=== PATIENT | female | born 1970 | race Caucasian/White ===

== ENCOUNTER 2016-09-23 11:24 | Inpatient (IN) | payer BC, MEDICARE ==
[2016-09-23] MEDS ORDERED: Sodium Chloride 0.9% 1000 ML 1,000 ML IV STA (11:48)
[2016-09-23] MEDS ORDERED: Sodium Chloride 0.9% 1000 ML 1,000 ML ONE (11:58)
[2016-09-23 12:13] LABS: Mean Cell Volume 87.4 fl (78-100); Mean Corpuscular Hemoglobin 29.3 pg (26-32); Mean Platelet Volume 10.3 fl (6-9.5); Platelet Count 390 K/mm3 (150-450); Red Blood Count 5.01 M/mm3 (4.1-5.4); Red Cell Distribution Width 13.6 % (11.5-14.0); White Blood Count 21.1 K/mm3 (4.0-10.5)
[2016-09-23 12:49] LABS: ALBUMIN 3.3 g/dL (3.4-5.0); ALKALINE PHOSPHATASE 85 U/L (46-116); ANION GAP 17.5 MEQ/L (5-15); BILIRUBIN,TOTAL 0.8 mg/dL (0.2-1.0); BLOOD UREA NITROGEN 11 mg/dL (9-20); CHLORIDE 99 mEq/L (98-107); Carbon Dioxide 22.2 mEq/L (21-32); Glucose 128 MG/DL (70-110); Potassium 3.9 mEq/L (3.5-5.1); SGOT/AST 23 U/L (15-37); SGPT/ALT 35 U/L (12-78); SODIUM 135 mEq/L (136-145); Total Protein 7.2 gm/dL (6.4-8.2)
[2016-09-23 12:55] LABS: Platelet Estimate NORMAL (NORMAL); Total Cells Counted 100
[2016-09-23 13:13] LABS: INR 1.16 (0.8-3.0); PROTIME 12.9 SECONDS (9.95-12.35)
--- NOTE | 2016-09-23 13:38 | XRAY ---
Indication: Abdominal/pelvic pain for 2 weeks. Diarrhea. Dehydration. Multiple contiguous axial images obtained through the abdomen and pelvis using 80 cc Isovue 370 contrast only. Comparison: None Lung bases demonstrates minimal inferior lingular fibrosis/scarring. No infiltrate, consolidation, or effusion. Heart is not enlarged and demonstrates tiny pericardial effusion/thickening anteriorly. Noncontrasted stomach and bowel loops appear nonobstructed. There is mild/moderate circumferential wall thickening of the entire colon with pericolonic stranding favoring colitis. Greatest extent involves the ascending and transverse colon. Normal terminal ileum. Tiny right colic free fluid. No walled off fluid or free air. Spleen is enlarged measuring 14.4 cm in greatest axial dimension. Gallbladder is moderately distended with borderline wall thickening and a few tiny gallstones. No pericholecystic fluid or abnormal biliary distention. Remaining liver, pancreas, adrenal glands, kidneys, ureters, bladder, and uterus appear unremarkable. Minimal aortoiliac calcifications. No AAA or pathologic retroperitoneal lymphadenopathy. Osseous structures intact with mild/moderate degenerative changes throughout the spine greatest in the lumbar. Mild degenerative changes of both hips. Impression: 1. CT findings as detailed favoring diffuse colitis. Normal terminal ileum. No perforation or complications. 2. Distended gallbladder with borderline wall thickening and a few tiny gallstones. Rule out chronic cholecystitis. 3. Incidental splenomegaly. CT DI 35.17
[2016-09-23 13:45] LABS: Collection Type VOID; Ph 7.5 (5-6)
[2016-09-23 13:47] LABS: COMPLETE URINE MICROSCOPIC? YES; Epithelial Cells FEW /HPF (FEW); Mucus SLIGHT /HPF (NEGATIVE)
[2016-09-23 13:48] LABS: ADD URINE CULTURE? NO (NO)
--- NOTE | 2016-09-23 13:57 | ERPHSYRPT ---
- History of Present Illness Time Seen by Provider: 09/23/16 11:35 Historian: patient, family Exam Limitations: no limitations Patient Subjective Stated Complaint: PT STATES THAT SHE HAS HAD DIARRHEA X 2 WEEKS STATES HER FAMILY MD HAS SEEN HER AND DRAWN BLOOD AND GIVEN HER BACTRIM BUT STATES THAT SHE IS STILL HAVING THE DIARRHEA STATES THAT SHE WAS TOLD TO COME HERE BECAUSE FAMILY MD THOUGHT SHE WAS GETTING DEHYDRATED. PT STATES THEY HAVE ALSO ALREADY TESTED HER STOOL Triage Nursing Assessment: PT ALERT WARM AND DRY RESP EASY NON LABOERD PT AMBULATED TO ROOM WITHOUT DIFFIUCLTY ABDOMEN SOFT BOWEL SOUNDS NOTED X 4 QUADS. Physician History: Records from Dr. Henderson's office note elevated WBC at greater than 20K. Stool negative for salmonella and shigella. Pt. no better for 2 weeks now. Timing/Duration: week(s) (2) Activities at Onset: none Quality: cramping Abdominal Pain Onset Location: RUQ, periumbilical Severity of Pain-Max: moderate Severity of Pain-Current: moderate Modifying Factors: Improves With: movement Associated Symptoms: denies symptoms Previous symptoms: no prior history Allergies/Adverse Reactions: Penicillins Allergy (Verified 09/23/16 11:30) Home Medications: Diltiazem HCl 120 mg PO 09/23/16 [History] Fluoxetine HCl 40 mg PO DAILY 09/23/16 [History] Lisinopril/Hydrochlorothiazide [Lisinopril-Hctz 20-12.5 mg Tab] 09/23/16 [ History] Naproxen 500 mg PO 09/23/16 [History] Hx Tetanus, Diphtheria Vaccination/Date Given: Yes Hx Influenza Vaccination/Date Given: Yes Hx Pneumococcal Vaccination/Date Given: No Immunizations Up to Date: Yes - Review of Systems Constitutional: No Symptoms Eyes: No Symptoms Ears, Nose, & Throat: No Symptoms Respiratory: No Symptoms Cardiac: No Symptoms Abdominal/Gastrointestinal: Abdominal Pain, Diarrhea Genitourinary Symptoms: No Symptoms Musculoskeletal: No Symptoms Skin: No Symptoms Neurological: No Symptoms Psychological: No Symptoms Endocrine: No Symptoms Hematologic/Lymphatic: No Symptoms - Past Medical History Pertinent Past Medical History: Yes Other Medical History: DEPRESSION,HTN,ARTHRITIS. - Past Surgical History Past Surgical History: Yes Other Surgical History: TUBAL,DOUBLE KNEE REPLACEDMENT,BACK SUGERY - Social History Smoking Status: Never smoker Exposure to second hand smoke: No Drug Use: none Patient Lives Alone: No - Female History Hx Last Menstrual Period: ABLASION - Nursing Vital Signs Nursing Vital Signs: Initial Vital Signs Temperature 97.9 F Temperature Source Oral Pulse Rate 105 Respiratory Rate 18 Blood Pressure [] 141/76 Pain Intensity 6 - Physical Exam General Appearance: moderate distress Eye Exam: eyes nml inspection Ears, Nose, Throat Exam: normal ENT inspection, pharynx normal Neck Exam: normal inspection, non-tender, supple, full range of motion Respiratory Exam: normal breath sounds, lungs clear Cardiovascular Exam: regular rate/rhythm, normal heart sounds, normal peripheral pulses Gastrointestinal/Abdomen Exam: soft, normal bowel sounds, tenderness ( periumbilical and RUQ) Extremity Exam: normal inspection, normal range of motion, pelvis stable Neurologic Exam: alert, oriented x 3, cooperative Skin Exam: normal color, warm, dry SpO2 Interpretation: normal SpO2: 96 Oxygen Delivery: Room Air - Course Nursing assessment & vital signs reviewed: Yes - CT Exams Abdomen/Pelvis CT Interpretation: Tele-radiologist Report (Mild/moderate circumferential wall thickening of entire colon with percolonic stranding favoring colitis. Distended gallbladder with borderline wall thickening and a few tiny gallstones. Chronic cholecystitis. Incidental splenomagly.) Ordered Tests: Active Orders 24 hr Category Date Time Status IV Insertion STAT Care 09/23/16 12:33 Active Orthostatic Vital Signs STAT Care 09/23/16 11:48 Active ABDOMEN AND PELVIS W CONTRAST [CT] Stat Exams 09/23/16 11:53 Completed BLOOD CULTURE Stat Lab 09/23/16 14:20 Received CBC W DIFF Stat Lab 09/23/16 12:00 Completed CMP Stat Lab 09/23/16 12:00 Completed LIPASE Stat Lab 09/23/16 12:00 Completed Lactic Acid Stat Lab 09/23/16 14:25 Completed Manual Differential NC Stat Lab 09/23/16 12:00 Completed PROTIME WITH INR Stat Lab 09/23/16 12:00 Completed UA W/ MICROSCOPIC Stat Lab 09/23/16 13:30 Completed UA W/RFX UR CULTURE Stat Lab 09/23/16 13:30 Completed Medication Summary Generic Name Dose Route Start Last Admin Trade Name Freq PRN Reason Stop Dose Admin Levofloxacin/Dextrose 100 mls @ 100 mls/hr 09/23/16 14:36 Levofloxacin 500mg/100ml D5w IV 09/23/16 15:35 STAT ONE Metronidazole 100 mls @ 100 mls/hr 09/23/16 14:36 09/23/16 14:52 Flagyl 500 Mg Ivpb IV 09/23/16 15:35 100 mls/hr STAT ONE Administration Discontinued Medications Generic Name Dose Route Start Last Admin Trade Name Ap PRN Reason Stop Dose Admin Sodium Chloride 1,000 mls @ 999 mls/hr 09/23/16 11:48 09/23/16 12:00 Sodium Chloride 0.9% 1000 Ml IV 09/23/16 12:48 999 mls/hr .Q1H1M STA Administration Sodium Chloride Confirm 09/23/16 11:58 Sodium Chloride 0.9% 1000 Ml Administered 09/23/16 11:59 Dose 1,000 mls @ ud .ROUTE .STK-MED ONE Sodium Chloride Confirm 09/23/16 14:02 Sodium Chloride 0.9% 1000 Ml Administered 09/23/16 14:03 Dose 1,000 mls @ ud .ROUTE .STK-MED ONE Metronidazole Confirm 09/23/16 14:47 Flagyl 500 Mg Ivpb Administered 09/23/16 14:48 Dose 100 mls @ ud IV .STK-MED ONE Levofloxacin/Dextrose Confirm 09/23/16 14:48 Levofloxacin 500mg/100ml D5w Administered 09/23/16 14:49 Dose 100 mls @ ud IV .STK-MED ONE Lab/Rad Data: Laboratory Result Diagrams 09/23/16 12:00 09/23/16 12:00 Laboratory Results 09/23/16 09/23/16 09/23/16 Range/Units 14:25 13:30 12:00 WBC (4.0-10.5) K/mm3 RBC (4.1-5.4) M/mm3 Hgb (12.0-16.0) gm/dl Hct (35-47) % MCV (78-100) fl MCH (26-32) pg MCHC (32-36) g/dl RDW (11.5-14.0) % Plt Count (150-450) K/mm3 MPV (6-9.5) fl Segmented Neutrophils (36.0-66.0) % Lymphocytes (Manual) (24-44) % Monocytes (Manual) (0.0-12.0) % Differential Comment Platelet Estimate (NORMAL) INR 1.16 (0.8-3.0) Sodium (136-145) mEq/L Potassium (3.5-5.1) mEq/L Chloride (98-107) mEq/L Carbon Dioxide (21-32) mEq/L Anion Gap (5-15) MEQ/L BUN (9-20) mg/dL Creatinine (0.55-1.30) mg/dl Estimated GFR ML/MIN Glucose (70-110) MG/DL Lactic Acid 0.9 (0.4-2.0) Calcium (8.5-10.1) mg/dL Total Bilirubin (0.2-1.0) mg/dL AST (15-37) U/L ALT (12-78) U/L Alkaline Phosphatase (46-116) U/L Serum Total Protein (6.4-8.2) gm/dL Albumin (3.4-5.0) g/dL Lipase (73-393) U/L Ur Collection Type VOID Urine Color YELLOW (YELLOW) Urine Appearance CLEAR (CLEAR) Urine pH 7.5 (5-6) Ur Specific [place] 1.015 (1.005-1.025) Urine Protein 30 (Negative) Urine Glucose (UA) NEGATIVE (NEGATIVE) mg/dL Urine Ketones MODERATE-40 (NEGATIVE) Urine Nitrite NEGATIVE (NEGATIVE) Urine Bilirubin NEGATIVE (NEGATIVE) Urine Urobilinogen 0.2 (0-1) mg/dL Urine WBC (Auto) NEGATIVE (NEGATIVE) Urine RBC (Auto) NEGATIVE (0-5) [place] Ur Epithelial Cells FEW (FEW) /HPF Urine Mucus SLIGHT (NEGATIVE) /HPF Specimen Received 09/23/2016 1330 09/23/16 09/23/16 09/23/16 Range/Units 12:00 12:00 12:00 WBC 21.1 H (4.0-10.5) K/mm3 RBC 5.01 (4.1-5.4) M/mm3 Hgb 14.7 (12.0-16.0) gm/dl Hct 43.8 (35-47) % MCV 87.4 (78-100) fl MCH 29.3 (26-32) pg MCHC 33.6 (32-36) g/dl RDW 13.6 (11.5-14.0) % Plt Count 390 (150-450) K/mm3 MPV 10.3 H (6-9.5) fl Segmented Neutrophils 80 H (36.0-66.0) % Lymphocytes (Manual) 17 L (24-44) % Monocytes (Manual) 3 (0.0-12.0) % Differential Comment NORMAL Platelet Estimate NORMAL (NORMAL) INR (0.8-3.0) Sodium 135 L (136-145) mEq/L Potassium 3.9 (3.5-5.1) mEq/L Chloride 99 (98-107) mEq/L Carbon Dioxide 22.2 (21-32) mEq/L Anion Gap 17.5 H (5-15) MEQ/L BUN 11 (9-20) mg/dL Creatinine 0.77 (0.55-1.30) mg/dl Estimated GFR > 60 ML/MIN Glucose 128 H (70-110) MG/DL Lactic Acid (0.4-2.0) Calcium 9.0 (8.5-10.1) mg/dL Total Bilirubin 0.8 (0.2-1.0) mg/dL AST 23 (15-37) U/L ALT 35 (12-78) U/L Alkaline Phosphatase 85 (46-116) U/L Serum Total Protein 7.2 (6.4-8.2) gm/dL Albumin 3.3 L (3.4-5.0) g/dL Lipase 132 (73-393) U/L Ur Collection Type Urine Color (YELLOW) Urine Appearance (CLEAR) Urine pH (5-6) Ur Specific [place] (1.005-1.025) Urine Protein (Negative) Urine Glucose (UA) (NEGATIVE) mg/dL Urine Ketones (NEGATIVE) Urine Nitrite (NEGATIVE) Urine Bilirubin (NEGATIVE) Urine Urobilinogen (0-1) mg/dL Urine WBC (Auto) (NEGATIVE) Urine RBC (Auto) (0-5) [place] Ur Epithelial Cells (FEW) /HPF Urine Mucus (NEGATIVE) /HPF Specimen Received - Progress Progress: unchanged Discussed with : Tariq (accepts pt. for admission), Other (Dr. High/Surgery notified and will consult.) Counseled pt/family regarding: lab results, diagnosis, need for follow-up, rad results - Departure Time of Disposition: 15:00 Departure Disposition: In-patient Admission Clinical Impression: Colitis, Cholecystitis, chronic Condition: Stable Critical Care Time: Yes Critical Care Time(excluding separately billable procedures): 75-104 minutes Referrals: NOEL HENDERSON [Primary Care Provider] -
[2016-09-23] MEDS ORDERED: Sodium Chloride 0.9% 1000 ML 2,000 ML ONE (14:02)
[2016-09-23] MEDS ORDERED: FLAGYL 500 MG IVPB 100 ML IV ONE ×2 (14:36→14:47)
[2016-09-23] MEDS ORDERED: Levofloxacin 500MG/100ML D5W 100 ML IV ONE ×2 (14:36→14:48)
[2016-09-23] MEDS ORDERED: MORPHINE SULFATE 4 MG INJ IV PRN (15:30)
[2016-09-23] MEDS ORDERED: Zofran 4 MG/2 ML VIAL IV PRN (15:30)
[2016-09-23] MEDS: Sodium Chloride 0.9% 1000 ML 1,000 ML IV SCH (15:52)
[2016-09-23] MEDS: FLAGYL 500 MG IVPB 100 ML IV SCH (16:47)
--- NOTE | 2016-09-23 16:51 | PCM.HP ---
History of Present Illness - Chief Complaint Chief Complaint: Colitis History of Present Illness: is a 45 year old female with a 2 week history of persistent diarrhea, she reports abdominal cramping, and persistent watery diarrhea multiple times daily. No gross blood, no nausea or vomiting, has had low grade fever intermittently. saw her PCP Dr Fagan and was given bactrim with no improvement , had stool studies which were reportedly negative. She contacted his office today and advised to seek ER care due to concern for dehydration. - Review of Systems Constitutional: No Fever, No Chills Respiratory: No Cough, No Short Of Breath Cardiac: No Chest Pain, No Edema, No Syncope Abdominal/Gastrointestinal: Diarrhea, No Nausea, No Vomiting Genitourinary Symptoms: No Dysuria Skin: No Rash All Other Systems: Reviewed and Negative Medications & Allergies Home Medications: Home Medication List Diltiazem HCl 120 mg PO DAILY 09/23/16 [History Confirmed 09/23/16] Fluoxetine HCl 40 mg PO DAILY 09/23/16 [History Confirmed 09/23/16] Lisinopril/Hydrochlorothiazide [Lisinopril-Hctz 20-12.5 mg Tab] 1 tab PO DAILY 09/23/16 [History Confirmed 09/23/16] Naproxen 500 mg PO BID 09/23/16 [History Confirmed 09/23/16] Allergies/Adverse Reactions: Allergies Allergy/AdvReac Type Severity Reaction Status Date / Time Penicillins Allergy Verified 09/23/16 16:02 - Past Medical History Past Medical History: Yes Comment: DEPRESSION,HTN,ARTHRITIS. - Female History Hx Last Menstrual Period: ABLASION Are you now?: No - Past Surgical History Past Surgical History: Yes Other Surgical History: TUBAL,DOUBLE KNEE REPLACEDMENT,BACK SUGERY - Social History Smoking Status: Never smoker Exposure to second hand smoke: No Alcohol: None Drug Use: none - Physical Exam Vital Signs: Vital Signs - 24 hr Temp Pulse Resp BP Pulse Ox 09/23/16 15:11 96 09/23/16 14:10 105 H 18 141/76 98 09/23/16 12:43 69 18 123/69 96 09/23/16 11:33 97.9 F 120 H 18 154/80 96 General Appearance: no apparent distress, alert, obese Respiratory Exam: normal breath sounds, lungs clear, No respiratory distress Cardiovascular Exam: regular rate/rhythm, normal heart sounds, normal peripheral pulses Gastrointestinal/Abdomen Exam: soft, normal bowel sounds, tenderness (mild upper abdomen), No mass Extremity Exam: normal inspection, normal range of motion, pelvis stable Skin Exam: normal color, warm, dry, No rash Assessment/Plan (1) Colitis Current Visit: Yes Status: Acute Assessment & Plan: continue cipro and flagyl, will repeat c diff. clear liquids, surgery was consulted from ER Code(s): K52.9 - NONINFECTIVE GASTROENTERITIS AND COLITIS, UNSPECIFIED (2) Cholecystitis, chronic Current Visit: Yes Status: Acute Assessment & Plan: assume will need addressed after resolution of acute infection Code(s): K81.1 - CHRONIC CHOLECYSTITIS (3) Hypertension Current Visit: Yes Status: Acute Assessment & Plan: hold hctz, continue lisinopril and diltiazem Code(s): I10 - ESSENTIAL (PRIMARY) HYPERTENSION
[2016-09-23] MEDS: Zestril 20 MG PO SCH (18:16)
[2016-09-24] MEDS: FLAGYL 500 MG IVPB 100 ML IV SCH ×5 (00:36→23:43)
[2016-09-24] MEDS: Sodium Chloride 0.9% 1000 ML 1,000 ML IV SCH ×2 (03:45→09:44)
[2016-09-24 05:52] LABS: BASOPHIL % 0.2 % (0.0-0.4); Eosinophil % 1.1 % (0.00-5.0); Granulocytes % 80.2 % (36.0-66.0); Mean Cell Volume 89.5 fl (78-100); Mean Corpuscular Hemoglobin 29.3 pg (26-32); Mean Platelet Volume 10.1 fl (6-9.5); Monocytes % 7.5 % (0.0-12.0); Platelet Count 306 K/mm3 (150-450); Red Blood Count 4.47 M/mm3 (4.1-5.4); Red Cell Distribution Width 13.3 % (11.5-14.0); White Blood Count 16.5 K/mm3 (4.0-10.5)
[2016-09-24 06:34] LABS: ALBUMIN 2.7 g/dL (3.4-5.0); ALKALINE PHOSPHATASE 63 U/L (46-116); ANION GAP 14.6 MEQ/L (5-15); BILIRUBIN,TOTAL 0.7 mg/dL (0.2-1.0); BLOOD UREA NITROGEN 8 mg/dL (9-20); CHLORIDE 104 mEq/L (98-107); Carbon Dioxide 23.6 mEq/L (21-32); Glucose 142 MG/DL (70-110); MAGNESIUM 1.7 mg/dL (1.8-2.4); Potassium 3.7 mEq/L (3.5-5.1); SGOT/AST 17 U/L (15-37); SGPT/ALT 28 U/L (12-78); SODIUM 139 mEq/L (136-145); Total Protein 6.1 gm/dL (6.4-8.2)
--- NOTE | 2016-09-24 08:06 | PCM.NOTE ---
Date and Time: 09/24/16804 Subjective Assessment: patient still having significant diarrhea, c diff + Objective Exam General Appearance: no apparent distress, alert Respiratory Exam: normal breath sounds, lungs clear, No respiratory distress Cardiovascular Exam: regular rate/rhythm, normal heart sounds Gastrointestinal/Abdomen Exam: soft, No tenderness, No mass OBJECTIVE DATA Vital Signs: Vital Signs - 24 hr Temp Pulse Resp BP Pulse Ox 09/24/16 07:15 98.7 F 99 H 18 149/82 96 09/24/16 03:52 98.9 F 99 H 15 126/69 96 09/24/16 00:00 98.6 F 94 H 14 130/65 98 09/23/16 20:00 98.4 F 110 H 16 146/78 95 09/23/16 17:28 98.8 F 100 H 20 141/74 95 09/23/16 15:11 96 09/23/16 14:10 105 H 18 141/76 98 09/23/16 12:43 69 18 123/69 96 09/23/16 11:33 97.9 F 120 H 18 154/80 96 Pain Assessment - Last Documented Pain Intensity 4 Pain Scale Used 0-10 Pain Scale Intake and Output: Intake & Output 09/21/16 09/22/16 09/23/16 09/24/16 11:59 11:59 11:59 11:59 Intake Total 780 Balance 780 Weight 125.6 kg Lab Results: Lab Results-Last 24 Hours 09/23/16 09/24/16 09/24/16 Range/Units 16:15 04:00 05:28 WBC 16.5 H (4.0-10.5) K/mm3 RBC 4.47 (4.1-5.4) M/mm3 Hgb 13.1 (12.0-16.0) gm/dl Hct 40.0 (35-47) % MCV 89.5 (78-100) fl MCH 29.3 (26-32) pg MCHC 32.8 (32-36) g/dl RDW 13.3 (11.5-14.0) % Plt Count 306 (150-450) K/mm3 MPV 10.1 H (6-9.5) fl Gran % 80.2 H (36.0-66.0) % Lymphocytes % 11.0 L (24.0-44.0) % Monocytes % 7.5 (0.0-12.0) % Eosinophils % 1.1 (0.00-5.0) % Basophils % 0.2 (0.0-0.4) % Basophils # 0.03 (0-0.4) Sodium 139 (136-145) mEq/L Potassium 3.7 (3.5-5.1) mEq/L Chloride 104 (98-107) mEq/L Carbon Dioxide 23.6 (21-32) mEq/L Anion Gap 14.6 (5-15) MEQ/L BUN 8 L (9-20) mg/dL Creatinine 0.72 (0.55-1.30) mg/dl Estimated GFR > 60 ML/MIN Glucose 142 H (70-110) MG/DL Calcium 8.5 (8.5-10.1) mg/dL Magnesium 1.7 L (1.8-2.4) mg/dL Total Bilirubin 0.7 (0.2-1.0) mg/dL AST 17 (15-37) U/L ALT 28 (12-78) U/L Alkaline Phosphatase 63 (46-116) U/L Serum Total Protein 6.1 L (6.4-8.2) gm/dL Albumin 2.7 L (3.4-5.0) g/dL Stl C. diff Tox B Gene POSITIVE (NEGATIVE) C.difficile [id number] POSITIVE (NEGATIVE) Multi-Disciplinary Progress Notes: Multi-Disciplinary Progress Notes 09/23/16 23:22 Respiratory Note by Shahab Newman I OFFERED TO PUT PT ON O2 FOR THE NIGHT TO ASSIST W/ SLEEPING AND HAVE EXTRA "FLOW" AND SHE STATED THAT SHE DIDN'T THINK THAT WOULD HELP. Initialized on 09/23/16 23:22 - END OF NOTE 09/23/16 22:59 Respiratory Note by PatyShahab CALLED TO PT RM TO POSSIBLY SET HER UP ON A CPAP. PT DID NOT KNOW WHAT HER SETTINGS WERE. SHE STATED THAT IT WAS "SOMEWHERE BETWEEN 8-18". I ASKED HER IF IT WAS FOR SURE A CPAP AND SHE SAID YES. I ASKED IF IT HAD A RAMP STARTING AT 8CM H2O AND SHE SAID SHE DIDN'T KNOW, THAT IT JUST "BREATHED WITH HER". SHE DID NOT HAVE SLEEP STUDY HERE. SHE HAS NEVER USED CPAP HERE. SHE HAD NO ONE CURRENTLY AT THAT COULD TURN MACHINE ON TO CHECK SETTINGS. HER SPOUSE WAS AND SLEEPING AND SHE STATED THAT IF HE CONTACTED HER BEFORE HE LEFT FOR WORK SHE WOULD HAVE HIM CHECK OR BRING HER UNIT IN. ADVISED NURSING OF INFO. Initialized on 09/23/16 22:59 - END OF NOTE Assessment/Plan (1) Colitis Current Visit: Yes Status: Acute Assessment & Plan: c diff colitis, will d/c the cipro, add po vanc to flagyl due to severity of symptoms Code(s): K52.9 - NONINFECTIVE GASTROENTERITIS AND COLITIS, UNSPECIFIED (2) Cholecystitis, chronic Current Visit: Yes Status: Acute Code(s): K81.1 - CHRONIC CHOLECYSTITIS (3) Hypertension Current Visit: Yes Status: Acute Code(s): I10 - ESSENTIAL (PRIMARY) HYPERTENSION
--- NOTE | 2016-09-24 08:57 | CONS ---
CONSULT DATE: 09/23/2016 REASON FOR CONSULT: Abdominal pain. HISTORY: The patient is seen and examined on the floor. She had abdominal pain. She has had pronounced diarrhea. She presented and had a CT scan. The CT scan incidentally showed cholelithiasis. It did show thickened colon throughout most of her colon. Stool has been obtained for Clostridium difficile but the results are not present. On examination she has a moderately protuberant abdomen and it is diffusely tender. The white blood cell count is elevated. Her course is clearly consistent with a colitis, probably a Clostridium difficile colitis. The gallbladder disease is totally asymptomatic. Her colitis has gotten worse. She presented to the hospital for rehydration, antibiotic therapy. At this time I would not consider any cholecystectomy.
[2016-09-24] MEDS: Prozac 20 MG PO SCH (09:44)
[2016-09-24] MEDS: Cardizem CD 120 MG PO SCH (09:45)
[2016-09-24] MEDS: Zestril 20 MG PO SCH (09:45)
[2016-09-24] MEDS: PROTONIX 40 MG IV IV SCH (09:45)
[2016-09-24] MEDS ORDERED: Levofloxacin 500MG/100ML D5W 100 ML IV SCH (10:00)
[2016-09-24] MEDS ORDERED: DILTIAZEM HCL 120 MG PO SCH (10:00)
[2016-09-24] MEDS ORDERED: VANCOCIN 500 MG VIAL PO SCH (10:00)
[2016-09-24] MEDS: NON-FORMULARY ITEM PO SCH ×4 (10:03→21:43)
[2016-09-25] MEDS: Sodium Chloride 0.9% 1000 ML 1,000 ML IV SCH ×2 (03:19→19:27)
[2016-09-25] MEDS: FLAGYL 500 MG IVPB 100 ML IV SCH ×4 (05:46→23:51)
--- NOTE | 2016-09-25 06:56 | PCM.NOTE ---
Date and Time: 09/25/16 0645 Subjective Assessment: She was able to get some sleep last night. She was still having frequent stools all yesterday and a few last night that are loose. no fever tolerated po better yesterday with some discomfort. Objective Exam General Appearance: no apparent distress, obese Neurologic Exam: alert, oriented x 3, cooperative Skin Exam: warm, dry, No rash Eye Exam: No scleral icterus, No pale conjunctivae Ears, Nose, Throat Exam: dry mucous membranes Neck Exam: non-tender, supple Respiratory Exam: normal breath sounds, lungs clear Cardiovascular Exam: regular rate/rhythm, normal heart sounds, No edema Gastrointestinal/Abdomen Exam: soft, normal bowel sounds, No tenderness, No distention Extremity Exam: normal inspection, No pedal edema OBJECTIVE DATA Vital Signs: Vital Signs - 24 hr Temp Pulse Resp BP Pulse Ox 09/25/16 04:00 98.7 F 89 20 126/68 98 09/24/16 23:52 98.3 F 97 H 18 124/60 96 09/24/16 19:52 98.9 F 83 20 124/73 96 09/24/16 16:00 99.0 F 93 H 18 143/69 97 09/24/16 12:00 98.6 F 94 H 21 145/82 95 09/24/16 07:15 98.7 F 99 H 18 149/82 96 Pain Assessment - Last Documented Pain Scale Used 0-10 Pain Scale Intake and Output: Intake & Output 09/22/16 09/23/16 09/24/16 09/25/16 11:59 11:59 11:59 11:59 Intake Total 3127 Balance 3127 Weight 125.6 kg Assessment/Plan (1) Clostridium difficile colitis Current Visit: Yes Status: Acute Assessment & Plan: + for Nap 1 gene continue the IV flagyl and the po vanc improving possibly home tomorrow if stool count is decreasing and tolerating po well on po vanc. (2) Sleep apnea Current Visit: Yes Status: Chronic Code(s): G47.30 - SLEEP APNEA, UNSPECIFIED (3) Hypertension Current Visit: Yes Status: Chronic Code(s): I10 - ESSENTIAL (PRIMARY) HYPERTENSION
[2016-09-25] MEDS: PROTONIX 40 MG IV IV SCH (09:10)
[2016-09-25] MEDS: NON-FORMULARY ITEM PO SCH ×4 (09:31→21:53)
[2016-09-25] MEDS: Zestril 20 MG PO SCH (09:31)
[2016-09-25] MEDS: Cardizem CD 120 MG PO SCH (09:31)
[2016-09-25] MEDS: Prozac 20 MG PO SCH (09:31)
[2016-09-26] MEDS: FLAGYL 500 MG IVPB 100 ML IV SCH ×4 (05:00→23:05)
[2016-09-26] MEDS: Zestril 20 MG PO SCH (09:10)
[2016-09-26] MEDS: PROTONIX 40 MG IV IV SCH (09:10)
[2016-09-26] MEDS: Prozac 20 MG PO SCH (09:10)
[2016-09-26] MEDS: Cardizem CD 120 MG PO SCH (09:10)
[2016-09-26] MEDS: NON-FORMULARY ITEM PO SCH ×4 (09:11→22:01)
--- NOTE | 2016-09-26 09:25 | PCM.NOTE ---
Date and Time: 09/26/16923 Subjective Assessment: feeling better eating better but stools are still once an hour so far this am. No blood or mucous no pain or fever. Objective Exam General Appearance: alert, obese Neurologic Exam: alert, oriented x 3, cooperative, normal mood/affect, nml cerebellar function, sensation nml, No motor deficits Skin Exam: normal color, warm, dry Eye Exam: PERRL, EOMI, eyes nml inspection Ears, Nose, Throat Exam: normal ENT inspection, pharynx normal, moist mucous membranes Neck Exam: normal inspection, non-tender, supple, full range of motion Respiratory Exam: normal breath sounds, lungs clear, No respiratory distress Cardiovascular Exam: regular rate/rhythm, normal heart sounds Gastrointestinal/Abdomen Exam: soft, No tenderness, No mass Extremity Exam: normal inspection, normal range of motion Back Exam: normal inspection, normal range of motion, No CVA tenderness, No vertebral tenderness Pelvic Exam: deferred Rectal Exam: deferred OBJECTIVE DATA Vital Signs: Vital Signs - 24 hr Temp Pulse Resp BP Pulse Ox 09/26/16 07:10 97.8 F 85 20 123/64 97 09/26/16 04:00 97.8 F 81 20 146/66 96 09/26/16 00:00 97.8 F 90 20 120/56 97 09/25/16 19:40 98.5 F 86 20 128/70 96 09/25/16 15:30 98.1 F 100 H 20 148/98 97 09/25/16 12:45 98.4 F 98 H 20 149/75 96 Pain Assessment - Last Documented Pain Intensity 0 Pain Scale Used 0-10 Pain Scale Intake and Output: Intake & Output 09/23/16 09/24/16 09/25/16 09/26/16 11:59 11:59 11:59 11:59 Intake Total 3797 2735 Balance 3847 2735 Weight 125.6 kg Assessment/Plan (1) Clostridium difficile colitis Current Visit: Yes Status: Acute Assessment & Plan: c. diff with the virulent nap 1 gene continue po vanc and IV flagyl slow improvement thus far add cholestyramine currently with 1 stool per hour still too much to be discharged (2) Sleep apnea Current Visit: Yes Status: Chronic Code(s): G47.30 - SLEEP APNEA, UNSPECIFIED (3) Hypertension Current Visit: Yes Status: Chronic Code(s): I10 - ESSENTIAL (PRIMARY) HYPERTENSION
[2016-09-26] MEDS: QUESTRAN Light 4 GM Packet PO SCH ×3 (09:42→22:02)
[2016-09-26] MEDS: Sodium Chloride 0.9% 1000 ML 1,000 ML IV SCH (11:05)
[2016-09-27 04:57] VITALS: O2SAT 97
[2016-09-27] MEDS: FLAGYL 500 MG IVPB 100 ML IV SCH (05:05)
[2016-09-27] MEDS: Sodium Chloride 0.9% 1000 ML 1,000 ML IV SCH (05:05)
[2016-09-27 07:28] VITALS: BP 118/61; PULSE 95
--- NOTE | 2016-09-27 07:46 | PCM.DS ---
Discharge Summary Date of Admission: 09/24/16 08:05 Admitting Physician: DAX JAEGER Primary Care Provider: NOEL TSE Allergies Allergies Penicillins Allergy (Verified 09/23/16 16:02) Hospital Summary - Hospital Course Hospital Course: patient admitted with diarrhea and dehydration, + c diff. improved dramatically on IV flagyl and po vanc - Vitals & Intake/Output Vital Signs: Vital Signs Temperature 98.2 F 09/27/16 07:27 Pulse Rate 95 H 09/27/16 07:27 Respiratory Rate 18 09/27/16 07:27 Blood Pressure 118/61 09/27/16 07:27 O2 Sat by Pulse Oximetry 97 09/27/16 07:27 Intake & Output: Intake & Output 09/24/16 09/25/16 09/26/16 09/27/16 11:59 11:59 11:59 11:59 Intake Total 3847 2855 2948 Balance 3847 2855 2948 Weight 125.6 kg - Lab Result Diagrams: 09/24/16 04:00 09/24/16 05:28 - Procedures and Test Procedures and Tests throughout Hospitalization: Therapy Orders & Screens 09/24/16 22:56 BiPap/CPAP Assessment ROUTINE Comment: Diagnosis: COLITIS, ELEVATED WBC Discharge Exam General Appearance: no apparent distress, alert Respiratory Exam: normal breath sounds, lungs clear, No respiratory distress Cardiovascular Exam: regular rate/rhythm, normal heart sounds Gastrointestinal/Abdomen Exam: soft, No tenderness, No mass Final Diagnosis/Problem List - Final Discharge Diagnosis/Problem (1) Colitis Current Visit: Yes Status: Acute (2) Cholecystitis, chronic Current Visit: Yes Status: Acute (3) Hypertension Current Visit: Yes Status: Chronic - Discharge Disposition: Home, Self-Care Condition: Stable Prescriptions: New Cholestyramine Light 4 gm [QUESTRAN Light 4 GM Packet] 4 gm PO TID #0 packet Vancomycin/0.9 % Sod Chloride [Vanco 500 mg/100 ml-0.9% NaCl] 500 mg PO QID # 28 froz.piggy Continue Fluoxetine HCl 40 mg PO DAILY Naproxen 500 mg PO BID Lisinopril/Hydrochlorothiazide [Lisinopril-Hctz 20-12.5 mg Tab] 1 tab PO DAILY Diltiazem HCl 120 mg PO DAILY Follow up with: NOEL TSE [Primary Care Provider] -
[2016-09-27] MEDS: PROTONIX 40 MG IV IV SCH (08:01)
[2016-09-27] MEDS: Prozac 20 MG PO SCH (08:02)
[2016-09-27] MEDS: Zestril 20 MG PO SCH (08:03)
[2016-09-27] MEDS: Cardizem CD 120 MG PO SCH (08:03)
[2016-09-27] MEDS: QUESTRAN Light 4 GM Packet PO SCH (08:04)
[2016-09-27] MEDS: NON-FORMULARY ITEM PO SCH (08:16)
== END 2016-09-27 10:00 | disposition home or self-care (01) | DRG 392 ==
LOC: ED 11:24 → MED SURG 15:23 → OBSVTOIN 09-24 08:05 → ED 09-24 11:24 → MED SURG 09-24 15:23
PROVIDERS: ADMIT Family Medicine; ATTEND Family Medicine
DX: K52.9 Noninfective gastroenteritis and colitis, unspecified (principal); K80.10 Calculus of gallbladder with chronic cholecystitis without obstruction; A04.7 Enterocolitis due to Clostridium difficile; I10 Essential (primary) hypertension; F32.9 Major depressive disorder, single episode, unspecified; M19.90 Unspecified osteoarthritis, unspecified site; G47.30 Sleep apnea, unspecified
CPT/HCPCS: 36000; 36415; 74177; 80053; 81000; 83605; 83690; 83735; 85025; 85610; 87040; 87045; 87046; 87335; 87493; 94660; 96360; 96361; 96374; 99285; G0378; J1956; A9270-GY

== ENCOUNTER 2017-02-24 08:27 | Day surgery (SDC) | payer BC, MEDICARE ==
[~2017-02-24 08:27] MED LIST: Lactated Ringers 1,000 ML IV SCH
[2017-02-24] MEDS ORDERED: Versed 2 MG/2 ML Injection IV ONE (08:28)
[2017-02-24] MEDS ORDERED: DIPRIVAN 200 MG/20 ML IV ONE (08:28)
[2017-02-24] MEDS ORDERED: Lactated Ringers 1,000 ML IV ONE ×2 (08:49→13:04)
[2017-02-24 12:17] VITALS: BP 158/86; PULSE 74; O2SAT 99
--- NOTE | 2017-02-25 08:45 | OP ---
SURGERY DATE/TIME: 02/24/2017 1041 PREOPERATIVE DIAGNOSIS: Previous colitis. POSTOPERATIVE DIAGNOSIS: Previous colitis. PROCEDURE: Colonoscopy complete to cecum with stool sample for Clostridium difficile. Findings basically normal. SURGEON: Emmanuel High M.D. ANESTHESIA: MAC. COMPLICATIONS: None. CONDITION: Stable. INDICATION: A 46 year-old with recent severe colitis. It was Clostridium difficile. She presents for endoscopic examination. She is in consideration for cholecystectomy in the future here. DESCRIPTION OF PROCEDURE: She was taken to the endoscopy. Left lateral decubitus position. Anal digital examination satisfactory. The scope advanced to the cecum. She is morbidly obese. She did have MAC anesthetic and the right side was fairly tedious but the base of the cecum, ileocecal valve clearly identified and was clearly normal. On circumferential withdrawal ascending, hepatic, transverse, splenic, descending, sigmoid, rectum, anus was satisfactory. Stool was obtained for Clostridium difficile, ova and parasite, stool path pending. The patient tolerated the procedure satisfactorily. Findings discussed with the family in the waiting room.
[2017-02-28 13:50] LABS: Giardia Antigen EIA Negative (Negative)
== END 2017-02-24 12:24 | disposition home or self-care (01) ==
LOC: SDC 08:27
PROVIDERS: ATTEND Surgery
PROC: 0DJD8ZZ Inspection of Lower Intestinal Tract, Via Natural or Artificial Opening Endoscopic (ICD-10-PCS; principal; 2017-02-24)
DX: K52.9 Noninfective gastroenteritis and colitis, unspecified (principal); Z86.19 Personal history of other infectious and parasitic diseases
CPT/HCPCS: 00810; 36415; 87177; 87209; 87493; J2250; J2704

== ENCOUNTER 2017-05-05 06:59 | Day surgery (SDC) | payer BC, MEDICARE ==
--- NOTE | 2017-05-02 09:53 | HP ---
DATE OF SURGERY: 05/05/2017 ADMISSION DIAGNOSIS: Cholelithiasis. ANTICIPATED PROCEDURE: Cholecystectomy. HISTORY OF PRESENT ILLNESS: The patient has upper abdominal pain. Ultrasound positive. Seen and examined. Procedure discussed in detail and wished to proceed. PAST MEDICAL HISTORY: ALLERGIES: PENICILLIN. MEDICATIONS: Diltiazem, Naprosyn, lisinopril. PAST SURGICAL HISTORY: Knee surgery, hernia surgery, back surgery. SOCIAL HISTORY: Negative. FAMILY HISTORY: Negative. REVIEW OF SYSTEMS: Hypertension. PHYSICAL EXAMINATION: VITAL SIGNS: Normal. CHEST: Clear. COR: Regular. ABDOMEN: No palpable organomegaly or mass. IMPRESSION: Symptomatic cholelithiasis. PLAN: Laparoscopic cholecystectomy.
[2017-05-05] MEDS ORDERED: Quelicin Fliptop 200 MG/10 ML IV ONE (07:00)
[2017-05-05] MEDS ORDERED: DILAUDID 2 MG INJECTION IV ONE (07:00)
[2017-05-05] MEDS ORDERED: BRIDION 200MG/2ML IV ONE (07:00)
[2017-05-05] MEDS ORDERED: TORAdol 30 mg Injection IV ONE (07:00)
[2017-05-05] MEDS ORDERED: Zemuron 100 MG/10 ML IV ONE (07:00)
[2017-05-05] MEDS ORDERED: Decadron 4 MG INJ IV ONE (07:00)
[2017-05-05] MEDS ORDERED: SUBLIMAZE 100 MCG/2 ML IV ONE (07:00)
[2017-05-05] MEDS ORDERED: DIPRIVAN 200 MG/20 ML IV ONE (07:00)
[2017-05-05] MEDS ORDERED: Lactated Ringers 1,000 ML IV SCH (07:30)
[2017-05-05] MEDS ORDERED: Lactated Ringers 1,000 ML IV ONE ×2 (07:52→09:40)
[2017-05-05] MEDS ORDERED: Levofloxacin 500MG/100ML D5W 500 MG/100 ML BAG IV SCH (08:00)
[2017-05-05] MEDS ORDERED: CLINDAMYCIN-D5W 900 MG/50 ML*** 900 MG/50 ML BAG IV SCH (08:00)
[2017-05-05] MEDS ORDERED: Sensorcaine 0.25% 10 ML ONE (09:40)
[2017-05-05] MEDS ORDERED: Zofran 4 MG/2 ML VIAL ONE (11:57)
--- NOTE | 2017-05-05 13:37 | OP ---
SURGERY DATE/TIME: 05/05/2017 1018 PREOPERATIVE DIAGNOSIS: Symptomatic cholelithiasis. POSTOPERATIVE DIAGNOSIS: Symptomatic cholelithiasis. PROCEDURE: Laparoscopic cholecystectomy. SURGEON: Dr. High. ANESTHESIA: General endotracheal tube. COMPLICATIONS: None. CONDITION: Stable. INDICATIONS: A patient requiring cholecystectomy. DESCRIPTION OF PROCEDURE AND FINDINGS: Taken to surgery. General anesthetic, routine prep and drape. Veress needle inserted. Opening pressure of 1, insufflating pressure 14. Four - 5's, good visualization. Cystic duct defined. Cystic artery defined. Both structures triply clipped and transected. Clips noted to be across and well approximated. The incision was made larger. The gallbladder delivered totally intact. It was hydrops of the gallbladder with one single stone. Hole closure device with figure-of-8 suture #0 Vicryl. Hemostasis was excellent. CO exsufflated. Skin closed with 4-0 Vicryl and Steri-Strips. The patient tolerated the procedure satisfactorily.
[2017-05-05 15:29] VITALS: BP 146/95; PULSE 86; O2SAT 97
== END 2017-05-05 14:30 | disposition home or self-care (01) ==
LOC: SDC 06:59
PROVIDERS: ATTEND Surgery
PROC: 0FT44ZZ Resection of Gallbladder, Percutaneous Endoscopic Approach (ICD-10-PCS; principal; 2017-05-05)
DX: K80.20 Calculus of gallbladder without cholecystitis without obstruction (principal); I10 Essential (primary) hypertension; Z79.899 Other long term (current) drug therapy
CPT/HCPCS: 00790; 88304; J0330; J1100; J1170; J1885; J1956; J2405; J2704; J3010

== ENCOUNTER 2017-05-16 15:16 | Emergency (ER) | payer BC, MEDICARE ==
--- NOTE | 2017-05-16 15:37 | ERPHSYRPT ---
- History of Present Illness Time Seen by Provider: 05/16/17 15:28 Historian: patient Exam Limitations: no limitations Physician History: 46 y/o female s/p aurora mix 2 weeks ago comes to the ER with complaints of right sided abdominal pain that started this morning. Pt describes the pain as sharp, intermittent, 8/10, worse with movement and pt has not taken any pain meds. Pt denies any trauma, strain to abdomen, nausea, vomiting, diarrhea, constipation or urinary symptoms. Timing/Duration: today Activities at Onset: none Quality: sharpness Abdominal Pain Onset Location: RUQ Pain Radiation: no radiation Severity of Pain-Max: severe Severity of Pain-Current: severe Modifying Factors: Improves With: nothing Associated Symptoms: denies symptoms Previous symptoms: no prior history Allergies/Adverse Reactions: Penicillins Allergy (Verified 05/16/17 15:36) Swelling Home Medications: Diltiazem HCl 120 mg PO DAILY 09/23/16 [History] Fluoxetine HCl 40 mg PO DAILY 09/23/16 [History] Lisinopril/Hydrochlorothiazide [Lisinopril-Hctz 20-12.5 mg Tab] 1 tab PO DAILY 09/23/16 [History] Naproxen 500 mg PO BID 09/23/16 [History] L.acidoph,Paracasei, B.lactis [Probiotic] 1 each PO DAILY 02/21/17 [History] Fexofenadine HCl [Sarah] 30 mg PO DAILY 02/24/17 [History] Multivitamin [Multi-Vitamin Daily] 1 each PO DAILY 02/24/17 [History] Hx Tetanus, Diphtheria Vaccination/Date Given: Yes Hx Influenza Vaccination/Date Given: Yes Hx Pneumococcal Vaccination/Date Given: No - Review of Systems Constitutional: No Fever, No Chills Eyes: No Symptoms Ears, Nose, & Throat: No Symptoms Respiratory: No Cough, No Dyspnea Cardiac: No Chest Pain, No Edema, No Syncope Abdominal/Gastrointestinal: Abdominal Pain, No Nausea, No Vomiting, No Diarrhea , No Constipation Genitourinary Symptoms: No Dysuria Musculoskeletal: No Back Pain, No Neck Pain Skin: No Rash Neurological: No Dizziness, No Focal Weakness, No Sensory Changes Psychological: No Symptoms Endocrine: No Symptoms All Other Systems: Reviewed and Negative - Past Medical History Pertinent Past Medical History: Yes Neurological History: No Pertinent History ENT History: No Pertinent History Cardiac History: Hypertension Respiratory History: Asthma, Bronchitis, Sleep Apnea Endocrine Medical History: No Pertinent History Musculoskeletal History: Arthritis, Degenerative Disk Disease GI Medical History: Hemorrhoids, Polyps, Ulcer History: No Pertinent History Psycho-Social History: Depression Female Reproductive Disorders: Menstrual Problems Other Medical History: DEPRESSION,HTN,ARTHRITIS. hx of C-diff - Past Surgical History Past Surgical History: Yes Neuro Surgical History: No Pertinent History Cardiac: No Pertinent History Respiratory: No Pertinent History Gastrointestinal: Hernia Repair Genitourinary: No Pertinent History Musculoskeletal: Joint Replacement, Other Female Surgical History: Tubal Ligation Other Surgical History: Bilateral knee replacement March 2012, back surgery, ablastion, - Social History Smoking Status: Never smoker Exposure to second hand smoke: No Drug Use: none Patient Lives Alone: No - Nursing Vital Signs Nursing Vital Signs: Initial Vital Signs Temperature 98.0 F 05/16/17 15:28 Pulse Rate 84 05/16/17 15:28 Respiratory Rate 18 05/16/17 15:28 Blood Pressure 167/97 05/16/17 15:28 O2 Sat by Pulse Oximetry 98 05/16/17 15:28 Pain Scale Pain Intensity 8 - Physical Exam General Appearance: mild distress, alert Eye Exam: PERRL/EOMI, eyes nml inspection Ears, Nose, Throat Exam: normal ENT inspection, pharynx normal, moist mucous membranes Neck Exam: normal inspection, non-tender, supple, full range of motion Respiratory Exam: normal breath sounds, lungs clear, No respiratory distress Cardiovascular Exam: regular rate/rhythm, normal heart sounds Gastrointestinal/Abdomen Exam: soft, normal bowel sounds, tenderness, No distention, No mass, No guarding, No pulsatile mass Back Exam: normal inspection, normal range of motion, No CVA tenderness, No vertebral tenderness Extremity Exam: normal inspection, normal range of motion, pelvis stable Neurologic Exam: alert, oriented x 3, cooperative, normal mood/affect, nml cerebellar function, sensation nml, No motor deficits Skin Exam: normal color, warm, dry - Course Nursing assessment & vital signs reviewed: Yes Ordered Tests: Active Orders 24 hr Category Date Time Status IV Insertion STAT Care 05/16/17 15:38 Active ABDOMEN AND PELVIS W/0 CONTRAS [CT] Stat Exams 05/16/17 15:39 Completed AMYLASE Stat Lab 05/16/17 15:48 Completed CBC W DIFF Stat Lab 05/16/17 15:48 Completed CMP Stat Lab 05/16/17 15:48 Completed CULTURE,URINE Stat Lab 05/16/17 15:50 Received HCG QUALITATIVE,SERUM Stat Lab 05/16/17 15:48 Completed LIPASE Stat Lab 05/16/17 15:48 Completed Lactic Acid Stat Lab 05/16/17 15:38 Completed UA W/ MICROSCOPIC Stat Lab 05/16/17 15:50 Completed Medication Summary Discontinued Medications Generic Name Dose Route Start Last Admin Trade Name Freq PRN Reason Stop Dose Admin Morphine Sulfate 4 mg 05/16/17 15:38 05/16/17 15:49 Morphine Sulfate 4 Mg Inj IV 05/16/17 15:39 4 mg STAT ONE Administration Morphine Sulfate Confirm 05/16/17 15:47 Morphine Sulfate 4 Mg Inj Administered 05/16/17 15:48 Dose 4 mg .ROUTE .STK-MED ONE Ondansetron HCl 4 mg 05/16/17 15:38 05/16/17 15:49 Zofran 4 Mg/2 Ml Vial IV 05/16/17 15:39 4 mg STAT ONE Administration Ondansetron HCl Confirm 05/16/17 15:46 Zofran 4 Mg/2 Ml Vial Administered 05/16/17 15:47 Dose 4 mg .ROUTE .STK-MED ONE Lab/Rad Data: Laboratory Result Diagrams 05/16/17 15:48 05/16/17 15:48 Laboratory Results 05/16/17 05/16/17 05/16/17 Range/Units 15:50 15:48 15:48 WBC (4.0-10.5) K/mm3 RBC (4.1-5.4) M/mm3 Hgb (12.0-16.0) gm/dl Hct (35-47) % MCV (78-100) fl MCH (26-32) pg MCHC (32-36) g/dl RDW (11.5-14.0) % Plt Count (150-450) K/mm3 MPV (6-9.5) fl Gran % (36.0-66.0) % Lymphocytes % (24.0-44.0) % Monocytes % (0.0-12.0) % Eosinophils % (0.00-5.0) % Basophils % (0.0-0.4) % Basophils # (0-0.4) Sodium 140 (136-145) mEq/L Potassium 3.7 (3.5-5.1) mEq/L Chloride 103 (98-107) mEq/L Carbon Dioxide 27.0 (21-32) mEq/L Anion Gap 14.1 (5-15) MEQ/L BUN 21 H (9-20) mg/dL Creatinine 0.96 (0.55-1.30) mg/dl Estimated GFR > 60 ML/MIN Glucose 133 H (70-110) MG/DL Lactic Acid (0.4-2.0) Calcium 9.7 (8.5-10.1) mg/dL Total Bilirubin 0.50 (0.2-1.0) mg/dL AST 19 (15-37) U/L ALT 22 (12-78) U/L Alkaline Phosphatase 102 (46-116) U/L Serum Total Protein 7.8 (6.4-8.2) gm/dL Albumin 3.6 (3.4-5.0) g/dL Amylase 47 (25-115) U/L Lipase 184 (73-393) U/L Serum , Qual NEGATIVE (Negative) Ur Collection Type VOID Urine Color YELLOW (YELLOW) Urine Appearance CLEAR (CLEAR) Urine pH 5.0 (5-6) Ur Specific [place] 1.015 (1.005-1.025) Urine Protein NEGATIVE (Negative) Urine Ketones NEGATIVE (NEGATIVE) Urine Blood 5-10 (0-5) [place] Urine Nitrite NEGATIVE (NEGATIVE) Urine Bilirubin NEGATIVE (NEGATIVE) Urine Urobilinogen NORMAL (0-1) mg/dL Ur Leukocyte Esterase 1+ (NEGATIVE) Urine Microscopic RBC 0-2 (0-2) /HPF Urine Microscopic WBC 5-10 (0-5) /HPF Ur Epithelial Cells FEW (FEW) /HPF Urine Bacteria FEW (NEGATIVE) /HPF Urine Culture Reflexed YES (NO) Urine Glucose NEGATIVE (NEGATIVE) mg/dL Specimen Received 05/16/17 1550 05/16/17 05/16/17 Range/Units 15:48 15:38 WBC 10.1 (4.0-10.5) K/mm3 RBC 4.09 L (4.1-5.4) M/mm3 Hgb 12.0 (12.0-16.0) gm/dl Hct 36.4 (35-47) % MCV 89.0 (78-100) fl MCH 29.3 (26-32) pg MCHC 33.0 (32-36) g/dl RDW 12.6 (11.5-14.0) % Plt Count 303 (150-450) K/mm3 MPV 10.4 H (6-9.5) fl Gran % 64.5 (36.0-66.0) % Lymphocytes % 26.0 (24.0-44.0) % Monocytes % 6.3 (0.0-12.0) % Eosinophils % 2.9 (0.00-5.0) % Basophils % 0.3 (0.0-0.4) % Basophils # 0.03 (0-0.4) Sodium (136-145) mEq/L Potassium (3.5-5.1) mEq/L Chloride (98-107) mEq/L Carbon Dioxide (21-32) mEq/L Anion Gap (5-15) MEQ/L BUN (9-20) mg/dL Creatinine (0.55-1.30) mg/dl Estimated GFR ML/MIN Glucose (70-110) MG/DL Lactic Acid 0.9 (0.4-2.0) Calcium (8.5-10.1) mg/dL Total Bilirubin (0.2-1.0) mg/dL AST (15-37) U/L ALT (12-78) U/L Alkaline Phosphatase (46-116) U/L Serum Total Protein (6.4-8.2) gm/dL Albumin (3.4-5.0) g/dL Amylase (25-115) U/L Lipase (73-393) U/L Serum , Qual (Negative) Ur Collection Type Urine Color (YELLOW) Urine Appearance (CLEAR) Urine pH (5-6) Ur Specific [place] (1.005-1.025) Urine Protein (Negative) Urine Ketones (NEGATIVE) Urine Blood (0-5) [place] Urine Nitrite (NEGATIVE) Urine Bilirubin (NEGATIVE) Urine Urobilinogen (0-1) mg/dL Ur Leukocyte Esterase (NEGATIVE) Urine Microscopic RBC (0-2) /HPF Urine Microscopic WBC (0-5) /HPF Ur Epithelial Cells (FEW) /HPF Urine Bacteria (NEGATIVE) /HPF Urine Culture Reflexed (NO) Urine Glucose (NEGATIVE) mg/dL Specimen Received - Progress Progress: improved Progress Note: 05/16/17 17:41 Pt feels better after receiving morphine and zofran. The CT scan abd/pelvis does not show any acute findings in the abdomen but there appears to be a small pericardial effusion. Her vital signs are normal. The labs are unremarkable. Pt will be referred to cardiology, Dr. Rodríguez for evaluation of pericardial effusion. Pt has F/U with Dr High tomorrow for any post op complications. Pt has norco for abdominal pain. 05/16/17 17:44 - Departure Time of Disposition: 17:44 Departure Disposition: Home Clinical Impression: Pericardial effusion Abdominal pain Qualifiers: Abdominal location: right upper quadrant Qualified Code(s): R10.11 - Right upper quadrant pain Condition: Stable Critical Care Time: No Referrals: ILIANA MCNAMARA [Primary Care Provider] - ANDRES RODRÍGUEZ [COURTESY STAFF] - Instructions: Abdominal Pain-Adult Additional Instructions: Follow up with Dr Rodríguez tomorrow for further evaluation of pericardial effusion. Follow up with Dr High tomorrow for further evaluation of abdominal pain. Take [place] every 6 hrs as needed for pain.
[2017-05-16] MEDS ORDERED: MORPHINE SULFATE 4 MG INJ IV ONE (15:38)
[2017-05-16] MEDS ORDERED: Zofran 4 MG/2 ML VIAL IV ONE (15:38)
[2017-05-16] MEDS ORDERED: Zofran 4 MG/2 ML VIAL ONE (15:46)
[2017-05-16] MEDS ORDERED: MORPHINE SULFATE 4 MG INJ ONE (15:47)
[2017-05-16 15:50] LABS: BASOPHIL % 0.3 % (0.0-0.4); Eosinophil % 2.9 % (0.00-5.0); Granulocytes % 64.5 % (36.0-66.0); Mean Corpuscular Hemoglobin 29.3 pg (26-32); Mean Platelet Volume 10.4 fl (6-9.5); Monocytes % 6.3 % (0.0-12.0); Platelet Count 303 K/mm3 (150-450); Red Blood Count 4.09 M/mm3 (4.1-5.4); Red Cell Distribution Width 12.6 % (11.5-14.0); White Blood Count 10.1 K/mm3 (4.0-10.5)
[2017-05-16 15:54] LABS: ADD URINE CULTURE? YES (NO); Bilirubin NEGATIVE (NEGATIVE); COMPLETE URINE MICROSCOPIC? YES; Collection Type VOID; Glucose NEGATIVE (NEGATIVE); Leukocyte Esterase 1+ (NEGATIVE)
[2017-05-16 16:02] LABS: Bacteria FEW /HPF (NEGATIVE); Epithelial Cells FEW /HPF (FEW)
[2017-05-16 16:17] LABS: ALBUMIN 3.6 g/dL (3.4-5.0); ALKALINE PHOSPHATASE 102 U/L (46-116); ANION GAP 14.1 MEQ/L (5-15); BLOOD UREA NITROGEN 21 mg/dL (9-20); CHLORIDE 103 mEq/L (98-107); Glucose 133 MG/DL (70-110); LIPASE 184 U/L (73-393); Potassium 3.7 mEq/L (3.5-5.1); SGOT/AST 19 U/L (15-37); SGPT/ALT 22 U/L (12-78); SODIUM 140 mEq/L (136-145); Total Protein 7.8 gm/dL (6.4-8.2)
--- NOTE | 2017-05-16 16:31 | XRAY ---
Indication: Right lower quadrant pain. Status post cholecystectomy 2 weeks ago. Multiple contiguous axial images obtained through the abdomen and pelvis without contrast. Comparison: September 23, 2016. Lung bases demonstrate minimal bibasilar dependent atelectasis with stable lingular fibrosis/scarring. Heart is now borderline enlarged with slight increasing pericardial effusion. Stomach is distended with food/fluid. Noncontrasted stomach and bowel loops appear nonobstructed. Normal appendix. Interval cholecystectomy. No free fluid/air. Remaining liver, pancreas, spleen, adrenal glands, kidneys, ureters, bladder, and uterus appear unremarkable for noncontrast exam. Minimal aortoiliac calcifications without AAA. Osseous structures intact again with mild/moderate lumbar degenerative changes and both hips. No ventral/inguinal hernias. Impression: 1. Status post cholecystectomy. No complications. 2. No acute intra-abdominal/pelvic abnormalities on this noncontrast exam. 3. New borderline cardiomegaly with minimally increasing pericardial effusion. CT DI 23.68
[2017-05-16 17:57] VITALS: BP 130/70; PULSE 70; O2SAT 98
== END 2017-05-16 17:55 | disposition home or self-care (01) ==
LOC: ED 15:16
DX: R10.11 Right upper quadrant pain (principal); I31.3 Pericardial effusion (noninflammatory)
CPT/HCPCS: 36000; 36415; 74176; 80053; 81000; 82150; 83605; 83690; 84703; 85025; 87086; 96374; 96375; 99284; J2270; J2405